=== PATIENT | male | born 1960 | race Two or more races ===

== ENCOUNTER 2017-07-19 13:07 | Outpatient (CLI) ==
--- NOTE | 2017-07-19 16:08 | MRI ---
EXAM: MRI left knee without contrast. HISTORY: Pain. Air conditioner fell on hand.. Middle finger pain at base.. TECHNIQUE: Using a local extremity coil on a high field strength magnet multiplanar multisequence la rge field of view imaging obtained through the level of the left hand without intravenous or intra-ar ticular gadolinium contrast. Examination of limited diagnostic quality secondary to decreased signal- to-noise/resolution as well as motion degradation. Note this constitutes incomplete MR evaluation of the left wrist. FINDINGS: I do not have prior radiographs of the left hand available for comparison at the time of t his dictation. The alignment of the left hand shows radial subluxation of the first metacarpal with respect to the t rapezium. Trace radiocarpal joint effusion. Areas of intraosseous cyst/ganglion formation and/or tin y fibrous/cartilaginous lesions over the carpus. There are areas of questionable bone erosion as wel l. Superimposed osteoarthrosis. No acute fracture identified. Foci of intraosseous cysts/ganglion formation over the second and third metacarpal heads No dorsal extensor or palmar flexor tendon full-thickness disruption or tendon bow stringing. There i s some bone marrow edema along the head of the proximal phalanx left third digit. At this level ther e is thickening and increased signal intensity with indistinctness to the third extensor digitorum br keyanna tendinous insertion along the dorsal base of the middle phalanx. This may reflect sprain/partia l tearing. Some question superficial soft tissue swelling/contusion over the first webspace. IMPRESSION: Examination of limited diagnostic quality secondary to decreased dlcrvo-pi-olzpo/resolut ion as well as motion degradation. Recommendation is obtainment and correlation with plain film radi ographs of the left hand as none are available for comparison at the time of this dictation. Bone marrow edema along the head of the proximal phalanx left third digit. This may reflect some bon e marrow contusion. Question sprain/partial tearing to the tendinous insertion of the third extensor digitorum brevis along the dorsal base of the middle phalanx left third digit.. Question superficial soft tissue swelling/contusion over the first webspace. Osteoarthrosis. Areas of intraosseous cyst/ganglion formation and/or tiny fibrous/cartilaginous lesi ons over the carpus. There is questionable bone erosion as well.
== END 2017-07-19 13:08 | disposition home or self-care (01) ==
LOC: RAD 13:07
PROVIDERS: ATTEND Internal Medicine
DX: Z00.00 Encounter for general adult medical examination without abnormal findings (principal); Z12.5 Encounter for screening for malignant neoplasm of prostate; S59.902A Unspecified injury of left elbow, initial encounter; S69.92XA Unspecified injury of left wrist, hand and finger(s), initial encounter; W20.8XXA Other cause of strike by thrown, projected or falling object, initial encounter
CPT/HCPCS: 36415; 80053; 80061; 83036; 84443; 85025

== ENCOUNTER 2017-07-20 13:55 | Outpatient (CLI) ==
--- NOTE | 2017-07-20 17:39 | MRI ---
EXAM: MRI left elbow without contrast. HISTORY: Air conditioner unit fell on him.. No left elbow surgery reported.. TECHNIQUE: Using a local coil on a high field strength magnet multiplanar multisequence magnet reson ance imaging was attempted of the left elbow without intravenous or intra-articular gadolinium contra st. Examination of limited diagnostic quality secondary to decreased ythabx-nz-zqqcy/resolution as w ell as motion degradation.. FINDINGS: I do not have prior radiographs of the left elbow available for comparison at the time of this dictation. Alignment of the left elbow shows no dislocation or joint subluxations. Bone marrow signal intensity shows no acute fracture. No bone erosions. Physiologic amount fluid left elbow joint. No large os teochondral loose bodies identified. Posterior intact distal triceps tendon fibers with some mild te ndinosis. No olecranon bursitis. Within the anterior compartment the distal insertional biceps and brachialis tendons intact. Within the lateral compartment the radial collateral ligament and lateral ulnar collateral ligaments show intact fibers.. There is a 5 x 9 mm partial thickness tear over the origin of the common extens or tendon. Intact annular ligament fibers. Within the medial compartment there are intact ulnar collateral ligament fibers identified. The orig in of the flexor pronator wad intact. The ulnar nerve is located in expected position within the cub ital tunnel and within normal limits signal intensity and morphology.. IMPRESSION: No acute fracture. No bone erosions, joint subluxations or left elbow effusion identifi ed. Distal triceps insertional mild tendinosis. No olecranon bursitis. Lateral epicondylitis with approximate 5 x 9 mm partial thickness tear over the origin of the common extensor tendon. Examination of limited diagnostic quality secondary to decreased clicbz-ir-jgnia/resolution as well a s motion degradation. Grossly intact medial and lateral compartment ligaments. Recommendation is obtainment and correlation with plain film radiographs of the left elbow as none ar e available for comparison at the time of this dictation.
== END 2017-07-20 13:56 | disposition home or self-care (01) ==
LOC: RAD 13:55
PROVIDERS: ATTEND Internal Medicine
DX: M25.522 Pain in left elbow (principal); M79.645 Pain in left finger(s); W20.8XXA Other cause of strike by thrown, projected or falling object, initial encounter

== ENCOUNTER 2018-11-30 06:15 | Outpatient (CLI) ==
--- NOTE | 2018-11-30 09:22 | DI ---
EXAM: Two views of the chest. History: Chest pain. Findings: Heart size is normal. There is bronchial wall thickening but no consolidated pneumonia. No pleural fluid and no pneumothorax. No acute osseous abnormalities. Impression: Bronchial wall thickening but no consolidated pneumonia
--- NOTE | 2018-12-01 09:51 | ECHO2D ---
Date of Exam: 11/30/18 Ordering Physician: DR. ZOHAIB MIRANDA Room #: OP Reason for Echo: CHEST PAIN, MITRAL STENOSIS M-Mode Normal Adult Results LV Dimensions Normal Adult Results AoV Opening excursions >1.6 >1.6 LVEDD-base- 3.5-5.8 3.7 Ao root dimensions 2.0-3.7 3.4 LVESD-base- 3.1-4.6 L. Atrium dimensions 1.9-3.8 4.7 Post. Wall thickness 0.8-1.1 1.2 IV septum (thickness) 0.7-1.2 1.1 Post. Wall excursion 0.72-1.3 NORMAL Septal motion NORMAL Systolic motion R. Ventricular cavity 1.5-2.0 NORMAL LVEF 60% 70% Paradoxical septal wall motion NORMAL 2-D : THICKENING MITRAL VALVE LEAFLETS--NORMAL LEFT VENTRICLE CAVITY--NO EFFUSION NO THROMBUS, NORMAL LEFT VENTRICLE SIZE, LEFT ATRIAL ENLARGEMENT COLOR FLOW: MODERATE MITRAL REGURGITATION (SCREENING) M-MODE: MV: RESTRICTED MOTION OF MITRAL VALVE LEAFLETS, PLIABLE PML AV: NORMAL TV: NORMAL PV: CHAMBER SIZE: ENLARGED LEFT ATRIAL CAVITY WALL MOTION: NORMAL PERICARDIUM: NORMAL INTERPRETATION: 1. MITRAL STENOSIS--ANTERIOR MOTION OF PML DURING SYSTOLE--THICKENED LEAFLETS-- PLIABLE AML--VALVE AREA BY PLANIMETRY (1.9 CM2) 2. NORMAL AORTIC VALVE 3. ENLARGED LEFT ATRIAL CAVITY (4.7 CM) 4. MODERATE MITRAL REGURGITATION (SCREENING) MTDD
== END 2018-11-30 06:16 | disposition home or self-care (01) ==
LOC: CAR 06:15
PROVIDERS: ATTEND Internal Medicine
DX: R07.9 Chest pain, unspecified (principal); E78.5 Hyperlipidemia, unspecified; R73.9 Hyperglycemia, unspecified; Z12.5 Encounter for screening for malignant neoplasm of prostate
CPT/HCPCS: 36415; 80053; 83036; 84443; 85025

== ENCOUNTER 2018-12-01 06:30 | Outpatient (CLI) ==
--- NOTE | 2018-12-01 09:40 | ECHOSTRESS ---
Date of Exam: 12/01/18 Ordering Physician: DR. ZOHAIB MIRANDA Reason for Echo: CHEST PAIN, MITRAL STENOSIS, STRESS TEST--NO ISCHEMIA M-Mode Normal Adult Results LV Dimensions Normal Adult Results AoV Opening excursions >1.6 LVEDD-base- 3.5-5.8 Ao root dimensions 2.0-3.7 LVESD-base- 3.1-4.6 L. Atrium dimensions 1.9-3.8 Post. Wall thickness 0.8-1.1 IV septum (thickness) 0.7-1.2 Post. Wall excursion 0.72-1.3 Septal motion Systolic motion R. Ventricular cavity 1.5-2.0 LVEF 60% Paradoxical septal wall motion 2-D: NORMAL LEFT VENTRICULAR CONTRACTILITY--RESTING AND POST EXERCISE M-MODE: MV: AV: TV: PV: CHAMBER SIZE: WALL MOTION: NORMAL LEFT VENTRICULAR CONTRACTILITY--RESTING AND POST EXERCISE PERICARDIUM: INTERPRETATION: 1. NORMAL LEFT VENTRICULAR CONTRACTILITY--RESTING AND POST EXERCISE MTDD
--- NOTE | 2018-12-01 10:04 | STRESSECHO ---
Date of Test: 12/01/18 Ordering Physician: DR. ZOHAIB MIRANDA Reason for Exam: CHEST PAIN, GERD, MITRAL STENOSIS Smoking History: NONE Height: 69" Weight: 188 LBS Current Medications: NONE Resting EKG: SINUS RHYTHM/ NO ACUTE CHANGES Target Heart Rate: 139/164 S-T SEGMENT STAGE MPH/GRADE HEART RATE BPM BLOOD PRESSURE MMHG RHYTHM +/- ELEVATION DEPRESSION SYMPTOMS AT REST 72 BPM 124/90 MM[facility] SR X NONE 1 1.7/10% 130 BPM 140/80 MMHG SR X NONE 2 2.5/12% 3 3.4/14% 4 4.2/16% 5 5.0/18% Immediately After 151 BPM SR X SHORT OF AIR Minutes Post Exercise 1:00 112 BPM 170/100 MMHG SR X NONE Minutes Post Exercise 5:00 90 BPM 128/100 MMHG SR X NONE DURATION OF EXERCISE: 3:46 MAXIMUM HEART RATE REACHED: 151 BPM REASON FOR TERMINATION: SHORT OF AIR 99% OXYGEN SATURATION WITH EXERCISE ON ROOM AIR METS: 6.4 INTERPRETATION: 1. NO EVIDENCE OF ISCHEMIA BY ST-T WAVE 2. NO CHEST PAIN OR DISCOMFORT 3. FEW PVC'S WITH EXERCISE 4. BLOOD PRESSURE RESPONSE: HYPERTENSION POST EXERCISE NORMAL LEFT VENTRICULAR CONTRACTILITY--RESTING AND POST EXERCISE MTDD
== END 2018-12-01 06:31 | disposition home or self-care (01) ==
LOC: CAR 06:30
PROVIDERS: ATTEND Internal Medicine
DX: R07.9 Chest pain, unspecified (principal)

== ENCOUNTER 2018-12-08 11:40 | Outpatient (CLI) | END 2018-12-08 11:41 | disposition home or self-care (01) | LOC: LAB 11:40 | PROVIDERS: ATTEND Internal Medicine | DX: E78.5 Hyperlipidemia, unspecified (principal) | CPT/HCPCS: 36415; 80061 ==